=== PATIENT | male | born 1960 ===

== ENCOUNTER 2021-09-30 16:54 | Outpatient (REF) | payer OTHER, SELFPAY | END 2021-09-30 16:55 | disposition home or self-care (01) | LOC: LBN 16:54 | PROVIDERS: PCP Internal Medicine; Visit Provider Otolaryngology Otolaryngology/Facial Plastic Surgery | DX: R09.81 Nasal congestion (principal); J01.81 Other acute recurrent sinusitis; M79.89 Other specified soft tissue disorders | CPT/HCPCS: 87070 ==